=== PATIENT | male | born 1965 | race Two or more races ===

== ENCOUNTER 2018-07-28 11:41 | Emergency (ER) | payer SELFPAY ==
[~2018-07-28] VITALS: Ht 170.2 cm; Wt 65.8 kg
--- NOTE | 2018-07-28 11:47 | Emergency Room Report ---
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 He was weak but did not pass out. He says there is increased stress at this time in his life. Denies chest pain, palpitations. He was slightly nauseated at the time. He also felt a little bit short of breath and had some tingling in his hands and feet. He was concerned because he was thinking about his sister who is a twin in [facility] who has cancer with spread to her brain. He is on a diet trying to lose weight. He feels somewhat thirsty at this time. He denies abdominal pain or dysuria. There is no change in his bowels. He denies melena. No headache or change in vision. He did not loses sight when he felt weak. Patient has not seen a doctor since he was a child. He denies major medical problems at this time. He is taking some dietary supplements. Allergies: Coded Allergies: No Known Allergies (Unverified , 05/09/12) Patient History Past Medical History: see triage record Social History: Reports: alcohol use - Occasionally but not daily; Denies: smoking, drug use Social History Narrative With girlfriend. 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 Reviewed Nursing Documentation: PMH: Agreed; PSxH: Agreed Nursing Documentation-[facility] Past Medical History: No Stated History Review of Systems All Other Systems: negative except mentioned in HPI Physical Exam Vital Signs Date Time Temp Pulse Resp B/P (MAP) Pulse Ox O2 Delivery O2 Flow Rate FiO2 07/28/18 11:38 98.1 76 16 148/83 100 Room Air Sp02 EP Interpretation: reviewed, normal General Appearance: well appearing, no apparent distress, GCS 15 Head: normocephalic, atraumatic Eyes: left eye other - Pterygium; bilateral eye normal inspection, bilateral eye PERRL, bilateral eye EOMI ENT: moist mucus membranes - Somewhat poor dentition Neck: supple Respiratory: lungs clear, normal breath sounds Cardiovascular #1: regular rate, rhythm, no edema, no murmur Cardiovascular #2: 2+ radial (R) Gastrointestinal: normal inspection, normal bowel sounds, non tender, no mass, non-distended Musculoskeletal: back normal, digits/nails normal, normal range of motion Neurologic: alert, oriented x3, heat transfer technician III-XII nml as tested, motor strength/tone normal, DTRs symmetric, sensory intact Psychiatric: mood/affect normal Skin: normal inspection, warm/dry Medical Decision Making Diagnostic Impression: Primary Impression: Near syncope Additional Impression: Dehydration ER Course Near loss of consciousness. Differential includes acute myocardial infarction, arrhythmia, electrolyte imbalance, occult infection, dehydration, vasovagal episode, stress reaction amongst others. Evaluation will be with EKG, chest x- ray and labs. Based on the nonfocal neurologic exam CT of the head is not indicated. The patient will be treated with IV hydration. EKG normal. Chest x-ray normal. CBC and CMP normal with negative troponin. Urinalysis clear. Orthostatics performed with minimal elevation in pulse rate with sitting and standing. Pulse improved with standing. Discussed findings with patient and the need to follow-up with a physician. He and his girlfriend is questions were answered. Patient stable for outpatient observation and treatment. Laboratory Tests Test 07/28/18 12:00 07/28/18 13:30 White Blood Count 4.7 K/UL (4.8-10.8) L Red Blood Count 4.68 M/UL (4.70-6.10) L Hemoglobin 14.9 G/DL (14.2-18.0) Hematocrit 42.8 % (42.0-52.0) Mean Corpuscular Volume 91 FL (80-99) Mean Corpuscular Hemoglobin 31.9 PG (27.0-31.0) H Mean Corpuscular Hemoglobin Concent 34.8 G/DL (32.0-36.0) Red Cell Distribution Width 11.3 % (11.6-14.8) L Platelet Count 171 K/UL (150-450) Mean Platelet Volume 7.9 FL (6.5-10.1) Neutrophils (%) (Auto) 60.1 % (45.0-75.0) Lymphocytes (%) (Auto) 29.4 % (20.0-45.0) Monocytes (%) (Auto) 6.9 % (1.0-10.0) Eosinophils (%) (Auto) 2.5 % (0.0-3.0) Basophils (%) (Auto) 1.1 % (0.0-2.0) Prothrombin Time 10.4 SEC (9.30-11.50) Prothrombin Time INR 1.0 (0.9-1.1) PTT 28 SEC (23-33) Sodium Level 139 MMOL/L (136-145) Potassium Level 3.3 MMOL/L (3.5-5.1) L Chloride Level 103 MMOL/L (98-107) Carbon Dioxide Level 27 MMOL/L (21-32) Anion Gap 10 mmol/L (5-15) Blood Urea Nitrogen 14 mg/dL (7-18) Creatinine 0.9 MG/DL (0.55-1.30) Estimate Glomerular Filtration Rate > 60 mL/min (>60) Glucose Level 127 MG/DL (74-106) H Uric Acid 3.9 MG/DL (2.6-7.2) Calcium Level 8.8 MG/DL (8.5-10.1) Total Bilirubin 0.5 MG/DL (0.2-1.0) Aspartate Amino Transferase (AST) 25 U/L (15-37) Alanine Aminotransferase (ALT) 28 U/L (12-78) Alkaline Phosphatase 71 U/L (46-116) Total Creatine Kinase 293 U/L (26-308) Troponin I 0.000 ng/mL (0.000-0.056) Pro-B-Type Natriuretic Peptide 24 pg/mL (0-125) Total Protein 7.4 G/DL (6.4-8.2) Albumin 3.5 G/DL (3.4-5.0) Globulin 3.9 g/dL Albumin/Globulin Ratio 0.9 (1.0-2.7) L Urine Color Pale yellow Urine Appearance Clear Urine pH 8 (4.5-8.0) Urine Specific [place] 1.015 (1.005-1.035) Urine Protein Negative (NEGATIVE) Urine Glucose (UA) Negative (NEGATIVE) Urine Ketones Negative (NEGATIVE) Urine Blood Negative (NEGATIVE) Urine Nitrite Negative (NEGATIVE) Urine Bilirubin Negative (NEGATIVE) Urine Urobilinogen Normal MG/DL (0.0-1.0) Urine Leukocyte Esterase Negative (NEGATIVE) Urine Opiates Screen Negative (NEGATIVE) Urine Barbiturates Screen Negative (NEGATIVE) Phencyclidine (PCP) Screen Negative (NEGATIVE) Urine Amphetamines Screen Negative (NEGATIVE) Urine Benzodiazepines Screen Negative (NEGATIVE) Urine Cocaine Screen Negative (NEGATIVE) Urine Marijuana (THC) Screen Negative (NEGATIVE) EKG Diagnostic Results Rate: normal Rhythm: NSR ST Segments: no acute changes Rhythm Strip Diag. Results EP Interpretation: yes Rhythm: NSR, no PVC's, no ectopy Last Vital Signs Date Time Temp Pulse Resp B/P (MAP) Pulse Ox O2 Delivery O2 Flow Rate FiO2 07/28/18 19:12 98.1 65 19 130/90 98 Room Air 76 Status: improved Disposition: HOME, SELF-CARE Condition: Improved Scripts No Active Prescriptions or Reported Meds Dannie Saxena MD Jul 28, 2018 11:47
[2018-07-28 11:53] VITALS: BP 136/85
--- NOTE | 2018-07-28 12:24 | NUR ---
ED Nurse Note:pt. was BIBA from work with near syncopal episode, VSS, pt. is A/Ox4 ambulatory, no c/o pain, blood sent to labs
[2018-07-28 12:35] LABS: BASOPHILS % (AUTO) 1.1 % (0.0-2.0); EOSINOPHILS % (AUTO) 2.5 % (0.0-3.0); HEMATOCRIT 42.8 % (42.0-52.0); HEMOGLOBIN 14.9 G/DL (14.2-18.0); LYMPHOCYTES % (AUTO) 29.4 % (20.0-45.0); MEAN CORPUSCULAR VOLUME 91 FL (80-99); MONOCYTES % (AUTO) 6.9 % (1.0-10.0); NEUTROPHILS % (AUTO) 60.1 % (45.0-75.0); PLATELET COUNT 171 K/UL (150-450); RED BLOOD COUNT 4.68 M/UL (4.70-6.10); RED CELL DISTRIBUTION WIDTH 11.3 % (11.6-14.8); WHITE BLOOD COUNT 4.7 K/UL (4.8-10.8)
[2018-07-28 12:57] LABS: ANION GAP 10 mmol/L (5-15); BLOOD UREA NITROGEN 14 mg/dL (7-18); CALCIUM 8.8 MG/DL (8.5-10.1); CARBON DIOXIDE 27 MMOL/L (21-32); CHLORIDE 103 MMOL/L (98-107); CREATININE 0.9 MG/DL (0.55-1.30); POTASSIUM 3.3 MMOL/L (3.5-5.1); SODIUM 139 MMOL/L (136-145)
[2018-07-28 13:07] LABS: ALANINE AMINOTRANSFERASE 28 U/L (12-78); ALBUMIN 3.5 G/DL (3.4-5.0); ALBUMIN/GLOBULIN RATIO 0.9 (1.0-2.7); ALKALINE PHOSPHATASE 71 U/L (46-116); ASPARTATE AMINO TRANSFERASE 25 U/L (15-37); BILIRUBIN,TOTAL 0.5 MG/DL (0.2-1.0); CREATINE KINASE 293 U/L (26-308)
[2018-07-28 14:04] LABS: APPEARANCE,URINE CLEAR; BILIRUBIN, URINE NEGATIVE (NEGATIVE); COLOR,URINE PALE YELLOW; GLUCOSE, URINE (UA) NEGATIVE (NEGATIVE); KETONES,URINE NEGATIVE (NEGATIVE); LEUKOCYTE ESTERASE ,URINE NEGATIVE (NEGATIVE); NITRITE,URINE NEGATIVE (NEGATIVE); PH,URINE 8 (4.5-8.0); PROTEIN,URINE NEGATIVE (NEGATIVE); UROBILINOGEN,URINE NORMAL MG/DL (0.0-1.0)
--- NOTE | 2018-07-28 14:30 | Diagnostic Imaging Report ---
Indication: Chest pain Technique: One view of the chest Comparison: none Findings: Atelectasis or scarring is seen in the right upper lobe. The lungs and pleural spaces are otherwise clear. The heart size is normal. Impression: Right upper lobe atelectasis or scarring. No acute process otherwise
[2018-07-28 14:59] VITALS: BP 120/65
--- NOTE | 2018-07-28 15:00 | NUR ---
ED Nurse Note:ortho BP was done and notified
[2018-07-28 15:16] VITALS: BP_SYST 130; BP_SYST 136; BP_SYST 147; BP_DIAS 82; BP_DIAS 90; BP_DIAS 95
--- NOTE | 2018-07-28 15:30 | NUR ---
ER DISCHARGE NOTE: Patient is cleared to be discharged per ERMD, pt is aox4, on room air, with stable vital signs. pt was given dc and prescription instructions, pt was able to verbalize understanding, pt id band and iv site removed without complications. pt is able to ambulate with steady gait. pt took all belongings.
[2018-07-28 19:12] VITALS: BP 130/90
== END 2018-07-28 15:40 | disposition home or self-care (01) ==
LOC: EDBD 11:41 → EMR 12:11
DX: R55 Syncope and collapse (principal); E86.0 Dehydration
CPT/HCPCS: 36415; 71045; 80053; 80307; 81003; 82550; 83880; 84484; 84550; 85025; 85610; 85730; 93005; 96360; 99284